=== PATIENT | female | born 1990 | race Caucasian/White ===

== ENCOUNTER → 2019-01-27 | Outpatient (CLI) | payer OTHER ==
--- NOTE | 2019-01-26 19:57 | Pre Op History & Physical ---
CHIEF COMPLAINT: Recurrent tonsillitis, adenoiditis. HISTORY OF PRESENT ILLNESS: This 28-year-old female has 5-6 episodes of tonsillitis a year for the past few years. The patient has been treated with multiple antibiotics with no improvement. Typical episode usually includes sore throat, trouble swallowing, and missing work. The patient does have loud snoring, but no apneic episode. REVIEW OF SYSTEMS: System review showed no recent cardiovascular, respiratory, or GI problem. PAST MEDICAL HISTORY: The patient has a history of migraine, but no other medical problem. PAST SURGICAL HISTORY: She has previous Chiari decompression and cholecystectomy. ALLERGIES: SHE HAS NO KNOWN ALLERGY TO MEDICATION. MEDICATIONS: She is on: 1. Gabapentin. 2. Wellbutrin. SOCIAL HISTORY: She stopped smoking in May 2018, was half a pack a day smoker and a social drinker. FAMILY HISTORY: Noncontributory. PHYSICAL EXAMINATION: VITAL SIGNS: On examination, the patient's vital signs were within normal limits. EARS: Show normal tympanic membranes bilaterally. NASAL: Show hypertrophy of the inferior turbinate. OROPHARYNX AND ORAL CAVITY: Show 3+ tonsils bilaterally with no exudate or debris. The patient has Mallampati level 2. NECK: Show no lymph node or thyroid palpable. CHEST: Show good air entry bilaterally. CARDIOVASCULAR: Show S1, S2. No murmur noted. ASSESSMENT/PLAN: Ms. Bourgeois has recurrent tonsillitis and adenoiditis, which has been resistant to conservative therapy. Suggested treatment is tonsillectomy, possible adenoidectomy, and other necessary procedure. The complication of procedure includes, but not limited to bleeding, infection, hyponasal speech, nasal regurgitation of food, airway distress, persistent recurrence of the sore throat. Alternatives will be continue observation, continue antibiotic therapy, topical nasal steroid therapy, systemic steroid therapy, decongestant. The patient has elected to undergo the surgical procedure. MD JACQUI GoyalH/MODL /[id number] cc: Dr. Lipscomb
[~2019-01-27] MED LIST: BUPIVACAINE 0.5%/EPI 30 ML SDV INJ ONE; NAPROXEN250 MG PO; SUMATRIPTAN SUC25 MG PO; TRAZODONE HCL50 MG PO; WELLBUTRIN XL150 MG PO
--- OUTSIDE RECORDS SUMMARY | 2019-01-27 05:23 | XMS REPORT | Summary of Care ---
Author Author [facility] - Health Organization [facility] Address Unknown Phone Unavailable Care Team Providers Care Community Health Specialist Name Role Phone [facility] PCP Reason for Referral * (Routine) Referred By Contact Referred To Contact Status Reason Specialty Diagnoses / Procedures Arnulfo Burns MD [id number] [place] [phone] Arnulfo Burns MD [id number] [place] [phone] New Request Patient Requested Diagnoses Specific Provider Chiari malformation type I P rocedures CONSULT/REFERRAL PAIN CLINIC Reason for Visit * Reason Comments Rx Concern/Question Encounter Details Care Team Description Date Type Department Ye Ahmadi MD [address] [place] [id number] Rx Concern/Question 12/05/2018 Telephone [facility] Neurology-[address], [address] [place] [address] Allergies Comments Active Allergy Reactions Severity Noted Date Swelling and blistering from adhesive tape. Can tolerate paper tape. Adhesive Tape-Silicones Swelling 06/16/2018 Iodine And Iodide Hives 03/13/2018 Containing Products documented as of this encounter (statuses as of 12/05/2018) Medications End Date Status Medication Sig Dispensed Refills Start Date Active naproxen 500 mg Take 1 tablet 45 tablet 3 tabletIndications: by mouth 2 9 Chronic daily headache (two) times daily with meals as needed (headaches). Active sumatriptan 100 mg Take 1 tablet 9 tablet 5 tabletIndications: by mouth as 9 Chronic daily headache needed for Migraine. No more than 2 tabs in a 24 hr period, no more than 9 per month. Active medroxyPROGESTERone Take 1 tablet 30 tablet 3 (PROVERA) 10 mg tablet by mouth 9 daily. Take first 10 days of each month only Active medroxyPROGESTERone 5 mg Take 5 mg by 0 tablet mouth. 6 Active sulfamethoxazole-trimetho Take 1 tablet 20 tablet 0 prim 800-160 mg per by mouth 9 tabletIndications: every 12 Abscess of head, Chiari (twelve) malformation type I hours. Active traMADOL (ULTRAM) 50 mg Take 1 tablet 9 tablet 0 tabletIndications: by mouth 9 Abscess of head, Chiari every 8 malformation type I (eight) hours as needed for Pain (scale 4-6). Active gabapentin 300 mg Take 1 90 capsule 1 capsuleIndications: capsule by 9 Occipital neuralgia of mouth 3 left side (three) times daily. documented as of this encounter (statuses as of 12/05/2018) Active Problems Problem Noted Date Abnormal uterine bleeding 09/04/2018 Overview: 09/04/18 - FSH 7.6, LH 12.6, TSH normal 09/05/18 - Ultrasound revealed a uterus measuring 8.4 x 3.8 x 5.5 cm. There is a 0.4 cm anechoic cyst near the previous section scar and normal ovaries. 09/25/18 - EMB benign Headache 07/05/2018 Chiari malformation type I 06/26/2018 Biliary colic 09/09/2017 Morbid obesity with body mass index of 40.0-49.9 09/09/2017 documented as of this encounter (statuses as of 12/05/2018) Social History Date Tobacco Use Types Packs/Day Years Used Quit: 05/03/2018 Former Smoker 0.5 4 Smokeless Tobacco: Never Used Comments: stoppd smoking 06/10/18 Drinks/Week oz/Week Comments Alcohol Use occasionally Yes Sex Assigned at Date Recorded Not on file Industry Job Start Date Occupation Not on file Not on file Not on file Travel End Travel History Travel Start No recent travel history available. documented as of this encounter Last Filed Vital Signs Not on filedocumented in this encounter Plan of Treatment Care Team Description Date Type Specialty Debby Muller PA-C [address] [facility] [address] [place] [phone] 01/09/2019 Office Visit Obstetrics & Gynecology Debby Muller PA-C [address] [facility] [address] [place] [phone] 03/30/2019 Office Visit Obstetrics & Gynecology Health Maintenance Due Date Last Done Comments VARICELLA VACCINES (1 of 2002 2 - 13+ 2-dose series) DTaP,Tdap,and Td Vaccines 2008 (1 - Tdap) INFLUENZA VACCINE (#1) 2018 PAP SMEAR 09/04/2021 09/04/2018 PNEUMOCOCCAL 0-64 YEARS Aged Out No longer eligible based COMBINED SERIES on patient's age to complete this topic documented as of this encounter Implants Device Identifier Shelf Expiration Date Model / Serial / Lot Implanted Type Area Manufactur er 06/26/2028-9520 / 0 / 0 Plate [employer] [employer] PLATE Head Biomet Ref#[id number] Implanted: Qty: 1 on 06/26/2018 by Arnie Howard MD at [facility] 06/26/2028 [id number] / [id number] / 0 Screw 1.5mm Self Drilling Ht X Head [employer] Drive 4mm (Green) Biomet #[id number] - S0 Implanted: Qty: 4 on 06/26/2018 by Arnie Howard MD at [facility] documented as of this encounter Results Not on filedocumented in this encounter Visit Diagnoses Diagnosis Chiari malformation type I - Primary Compression of brain documented in this encounter Insurance Type Payer Benefit Subscriber ID Effective Phone Address Plan / Dates Group HMO AETNA AETNA HMO [id number] 2018- Present documented as of this encounter
--- OUTSIDE RECORDS SUMMARY | 2019-01-27 05:23 | XMS REPORT ---
Author Author [facility] Address Unknown Phone Unavailable Care Team Providers Care Recovery Operator Name Role Phone Unavailable Unavailable Problems This patient has no known problems. Allergies, Adverse Reactions, Alerts This patient has no known allergies or adverse reactions. Medications This patient has no known medications.
--- OUTSIDE RECORDS SUMMARY | 2019-01-27 05:23 | XMS REPORT | Summary of Care ---
Author Author [facility] - Health Organization [facility] - Health Address Unknown Phone Unavailable Care Team Providers Care Accounting Manager Controller Name Role Phone [facility] PCP Encounter Details Care Team Description Date Type Department Doctor Unassigned, [place] [place] [address] 12/05/2018 Orders Only [facility] [address] [place] [address] Allergies Comments Active Allergy Reactions Severity Noted Date Swelling and blistering from adhesive tape. Can tolerate paper tape. Adhesive Tape-Silicones Swelling 06/16/2018 Iodine And Iodide Hives 03/13/2018 Containing Products documented as of this encounter (statuses as of 12/07/2018) Medications End Date Status Medication Sig Dispensed [...] as of this encounter (statuses as of 12/07/2018) Active Problems Problem Noted Date Abnormal uterine [...] as of this encounter (statuses as of 12/07/2018) Social History Date Tobacco Use Types Packs/Day [...] Type Specialty Debby Muller PA-C [address] [phone] 01/09/2019 Office Visit Obstetrics & Gynecology Debby Muller PA-C [address] [facility] [address] [place] [phone] 03/30/2019 Office Visit Obstetrics & Gynecology Health [...] / Lot Implanted Type Area Manufactur er 06/26/2028-9519 / 0 / 0 Plate [place] [employer] PLATE Head [employer]omet Ref#[id number] Implanted: Qty: 1 on 06/26/2018 by Arnie Howard MD at [facility] 06/26/2028 [id number] / 0 / 0 Screw 1.5mm Self Drilling Ht X Head [employer] Drive 4mm (Green) Biomet #[id number] - S0 Implanted: Qty: 4 on 06/26/2018 by Arnie Howard MD at [facility] documented as of this encounter Procedures Comments Procedure Name Priority Date/Time Associated Diagnosis REFERRAL- Routine 12/05/2018 REQUEST/RESPONSE 12:01 AM CDT documented in this encounter Results Not on filedocumented in this encounter Insurance Type Payer Benefit Subscriber ID Effective Phone Address Plan / Dates Group HMO AETNA AETNA O [id number] 2018- Present documented as of this encounter
--- NOTE | 2019-01-27 07:10 | NUR ---
SPIRITUAL CARE - Pre-Surgery Assessment: Pt in bed. Pt's at bedside. Pt reported supportive attention from family and friends. Intervention: I provided pastoral presence, hospitality, and sympathetic listening. I acquainted pt with availability of cupola tender while hospitalized. Outcome: Pt expressed appreciation for visit. No need for follow up indicated at this time. ADY Rojaslain Spiritual Care Department O: [phone] Pager: [phone] ([phone] number calling from)
== END ==
LOC: LAB 05:00 → OR 05:21 → EDSTATUS 07:00
PROVIDERS: ATTEND Otolaryngology Otolaryngology/Facial Plastic Surgery
DX: Z01.818 Encounter for other preprocedural examination (principal); J35.03 Chronic tonsillitis and adenoiditis; Z53.8 Procedure and treatment not carried out for other reasons
CPT/HCPCS: 81025

== ENCOUNTER → 2019-02-03 | Day surgery (SDC) | payer OTHER ==
--- NOTE | 2019-01-26 19:57 | Pre Op History & Physical ---
CHIEF COMPLAINT: Recurrent tonsillitis, adenoiditis. HISTORY OF PRESENT ILLNESS: This 28-year-old female has 5-6 episodes of tonsillitis a year for the past few years. The patient has been treated with multiple antibiotics with no improvement. Typical episode usually includes sore throat, trouble swallowing, and missing work. The patient does have loud snoring, but no apneic episode. REVIEW OF SYSTEMS: System review showed no recent cardiovascular, respiratory, or GI problem. PAST MEDICAL HISTORY: The patient has a history of migraine, but no other medical problem. PAST SURGICAL HISTORY: She has previous Chiari decompression and cholecystectomy. ALLERGIES: SHE HAS NO KNOWN ALLERGY TO MEDICATION. MEDICATIONS: She is on: 1. Gabapentin. 2. Wellbutrin. SOCIAL HISTORY: She stopped smoking in May 2018, was half a pack a day smoker and a social drinker. FAMILY HISTORY: Noncontributory. PHYSICAL EXAMINATION: VITAL SIGNS: On examination, the patient's vital signs were within normal limits. EARS: Show normal tympanic membranes bilaterally. NASAL: Show hypertrophy of the inferior turbinate. OROPHARYNX AND ORAL CAVITY: Show 3+ tonsils bilaterally with no exudate or debris. The patient has Mallampati level 2. NECK: Show no lymph node or thyroid palpable. CHEST: Show good air entry bilaterally. CARDIOVASCULAR: Show S1, S2. No murmur noted. ASSESSMENT/PLAN: Ms. Bourgeois has recurrent tonsillitis and adenoiditis, which has been resistant to conservative therapy. Suggested treatment is tonsillectomy, possible adenoidectomy, and other necessary procedure. The complication of procedure includes, but not limited to bleeding, infection, hyponasal speech, nasal regurgitation of food, airway distress, persistent recurrence of the sore throat. Alternatives will be continue observation, continue antibiotic therapy, topical nasal steroid therapy, systemic steroid therapy, decongestant. The patient has elected to undergo the surgical procedure. MD JACQUI GoyalH/MODL /[id number] cc: Dr. Lipscomb
[~2019-02-03] MED LIST changes: +ACETAMINOPHEN 1000 MG/100 ML IV ONE; +BALANCED SALT SOLN (OPTH) 15 ML BTL IO ONE; +DEXAMETHASONE SOD PHOS INJ 4 MG/ML VIAL ONE; +FENTANYL CITRATE/PF 100MCG/2 ML INJ ONE; +GLYCOPYRROLATE INJ 1MG/ 5 ML SYR ONE; +LIDOCAINE HCL 2% LOCAL INJ 5 ML SDV VIAL INJ ONE; +MIDAZOLAM HCL 2 MG/2 ML VIAL ONE; +NEOSTIGMINE 5 MG/5ML SYR ONE; +ONDANSETRON HCL INJ 2MG/ML 2ML 2 MG/ML VIAL ONE; +PROPOFOL IV EMULSION 10 MG/ML 20 ML VIAL ONE; +ROCURONIUM BROMIDE 10 MG/ML 5ML VIAL ONE; +SEVOFLURANE INHAL SOLN 250 ML PEN BTL ONE
--- NOTE | 2019-02-03 04:49 | Pre Op History & Physical ---
ADDENDUM: ANTICIPATE DATE OF SURGERY: February 03, 2019. This 28-year-old female has recurrent tonsillitis and adenoiditis and was scheduled for tonsillectomy and adenoidectomy last week. The patient had an upper respiratory tract infection last week and the surgery was postponed until February 03, 2019. Her health status has not changed except that the upper respiratory tract infection that was affecting her has improved. The patient has elected to undergo the procedure. MD LANDRY Goyal/MODL /[id number]
--- NOTE | 2019-02-03 07:10 | NUR ---
SPIRITUAL CARE - Pre-Surgery Assessment: Pt in bed. Pt's mom at bedside. Pt reported supportive attention from family and friends. Intervention: I provided pastoral presence, hospitality, and sympathetic listening. I acquainted pt with availability of cloth cutting machine operator while hospitalized. Outcome: Pt expressed appreciation for visit. No need for follow up indicated at this time. ADY Rojaslain Spiritual Care Department O: [phone] Pager: [phone] ([phone] number calling from)
[2019-02-03 09:50] VITALS: BP 117/72
--- NOTE | 2019-02-03 13:27 | Operative Report ---
DATE OF PROCEDURE: 02/03/2019 SURGEON: Elia Alvarez MD PREOPERATIVE DIAGNOSES: Recurrent tonsillitis and adenoiditis. POSTOPERATIVE DIAGNOSES: Recurrent tonsillitis and adenoiditis. PROCEDURES PERFORMED: Tonsillectomy and adenoidectomy. ANESTHESIA: Natanael Lopez MD. INDICATIONS: This 28-year-old female has more than 5-6 episodes of tonsillitis a year for the past 2 years. She also has loud snoring and questionable apneic episodes. She has been treated with multiple antibiotics with no improvement. On examination, she was noted to have 3+ tonsils bilaterally with no exudate. It was decided that tonsillectomy and possible adenoidectomy and other necessary procedure will be beneficial for her. DESCRIPTION OF PROCEDURE: The patient was taken to the operating room, put under general anesthesia, endotracheally intubated. The patient was put in Kristan position and McIvor mouth gag was inserted. The tonsil fossas were injected with 0.5% Marcaine with 1:200,000 epinephrine. The soft palate was examined. No submucous cleft was noted. The adenoid tissue was noted to be hypertrophy. This was removed using the Endocurette. The right tonsil was retracted medially. A plane was created between the tonsil and tonsillar bed. Dissection was carried down to the inferior pole. Tonsil was snared off. Similar procedure was carried out on the contralateral side. Again, after a plane was created between the tonsil and tonsillar bed, dissection was carried down to the inferior pole. The tonsil was snared off. Hemostasis in tonsillar and adenoid beds were achieved using suction cautery. Nasopharynx, oropharynx, and oral cavity were irrigated with copious amount of normal saline. The stomach was suctioned out at the end of procedure. The patient tolerated the above procedure well with estimated blood loss about 20 mL. She was given 8 mg of Decadron intraoperatively. The patient was able to be transferred to recovery room in stable condition. Elia Alvarez MD DKH/MODL /[id number] cc: Jackelyn Lipscomb MD [place]
== END | disposition home or self-care (01) ==
LOC: OR 05:38
PROVIDERS: ATTEND Otolaryngology Otolaryngology/Facial Plastic Surgery
DX: J35.03 Chronic tonsillitis and adenoiditis (principal); I49.9 Cardiac arrhythmia, unspecified; E78.5 Hyperlipidemia, unspecified; F32.9 Major depressive disorder, single episode, unspecified; F41.9 Anxiety disorder, unspecified; Z87.891 Personal history of nicotine dependence
CPT/HCPCS: 42821; 81025; 88304; 93005; J0131; J1100; J2001; J2250; J2405; J2704; J3010; J3490